=== PATIENT | female | born 1935 | race Caucasian/White ===

== ENCOUNTER 2016-05-29 18:15 | Observation (INO) | payer OTHER ==
--- NOTE | ~2016-05-29 | EKG ---
PATIENT: JENNIFER NAIK UNIT #: [id number] Ventricular Rate: 70 BPM Atrial Rate: 70 BPM P-R Interval: 216 ms QRS Duration: 86 ms Q-T Interval: 418 ms QTC Calculation(Bezet): 451 ms Calculated R Sallis: 9 degrees Calculated T Sallis: 34 degrees Diagnosis Line: Electronic atrial pacemaker Diagnosis Line: When compared with ECG of 29-MAY-2016 16:58, Diagnosis Line: Electronic atrial pacemaker has replaced Atrial Diagnosis Line: fibrillation Diagnosis Line: Vent. rate has decreased BY 67 BPM Diagnosis Line: ST no longer depressed in Inferior leads Diagnosis Line: ST elevation has replaced ST depression in Lateral Diagnosis Line: leads Diagnosis Line: Nonspecific T wave abnormality no longer evident Diagnosis Line: in Inferior leads Diagnosis Line: T wave inversion no longer evident in Lateral Diagnosis Line: leads Diagnosis Line: Confirmed by SHINE SUNG MD ([id number]) on Diagnosis Line: 05/30/2016 3:59:14 PM INTERPRETING MD: MARCE
--- NOTE | ~2016-05-29 | CR72 ---
[facility] A Service of [facility] RADIOLOGY TEXT RESULTS PATIENT: JENNIFER NAIK LOCATION: [facility] [id number] : 36 UNIT #: [id number] AGE: [address]: JORGE MCNALLY SEX: F ORDER DR: [id number] [facility] [address] [place], [place] [address] [id number] MR#: [id number] Acc #: [id number] NAME: JENNIFER NAIK : 1935 SEX: F STUDY DATE/TIME: 05/29/2016 17:41 UNIT: [facility] ROOM: [facility] STUDY DESCRIPTION: CR Chest Single View Portable Attending Physician: Jorge Mcnally M.D. Ordering Physician: Cher Gambino M.D. Primary Care Physician: Jimmie Abdullahi M.D. MEDICAL IMAGING REPORT This report is preliminary unless electronic signature is present EXAM Portable chest HISTORY Chest pain. Shortness of air today. FINDINGS Cardiac size and pulmonary vascularity are normal. No airspace infiltrates or effusions. Left subclavian pacer leads extend into the right atrium and right ventricle. Right shoulder prosthesis. Calcified right hilar nodes. Tortuous descending thoracic aorta. IMPRESSION No acute findings. No active disease. Dictated by... Josh Chen M.D. THIS IS AN ELECTRONICALLY VERIFIED REPORT Josh Chen M.D. at 05/30/2016 11:30 PM MORTEZA/guero TD: 05/30/2016 11:55 JOB #: [id number] MEDICAL IMAGING REPORT Page 1 of 1 COPY
--- NOTE | ~2016-05-29 | HP ---
Unit #: [id number] #: [id number] Patient: JENNIFER NAIK [id number] [facility] [address] [place], [place] [address] [id number] MR#: [id number] NAME: JENNIFER NAIK ROOM: [facility] Age: 80 Sex: F Admission Date: 05/29/2016 : 1935 Attending Physician: Jorge Mcnally M.D. Primary Care Physician: Jimmie Abdullahi M.D. HISTORY AND PHYSICAL HISTORY OF PRESENT ILLNESS This is a 80-year-old white female who sees Cardiology at [facility]. She follows with Dr. Tracy. She has a history of hypertension, hyperlipidemia, permanent pacemaker, paroxysmal atrial fibrillation and reports she had a heart catheterization earlier this month that showed normal coronaries. She came to the emergency room after she felt a fullness in her mid sternal chest wall. The patient was found on her EKG to be in atrial fibrillation with rapid ventricular response. On admission, her blood pressure was 102/55, heart rate 123, respirations 18, temperature 97.8, O2 saturation 95% on room air. Her initial cardiac enzymes are negative. Chest x-ray did not show anything acute. Patient denies any recent illness. She denies that the chest pressure or heaviness radiates up into her neck, bilateral jaw, shoulders, arms or elbow. She has not had any dizziness, presyncopal or syncopal episodes. The patient was started on a Cardizem drip at 5 mg per hour and also on heparin. The patient is not on any chronic anticoagulation. She takes an aspirin. The patient had been on Xarelto, according to records, about three years ago, she is not sure when it was stopped. The patient has been admitted for further evaluation and management. PAST MEDICAL HISTORY 1. Hypertension. 2. Hyperlipidemia. 3. Paroxysmal atrial fibrillation. 4. In 2011, had a cardiac catheterization by Dr. Love here at [facility] that revealed normal coronaries with normal LVEF of 60%. 5. 05/15/2016, cardiac catheterization done at [facility] after she had an abnormal stress test, told it was normal by Dr. Tracy at [facility]. Details unavailable. 6. Permanent pacemaker placed about two years ago. 7. Hypothyroidism. 8. Arthritis. 9. Anxiety. 10. Nonsmoker. PAST SURGICAL HISTORY 1. Right knee replacement. 2. Cholecystectomy. 3. Back surgery. 4. Left knee replacement. Unit #: [id number] #: [id number] Patient: JENNIFER NAIK 5. Revision of left knee. 6. Right shoulder rotator cuff repair and replacement. 7. 2012 colonoscopy showing some diverticulosis. 8. Spinal stenosis and lumbar disk disease. HOME MEDICATIONS 1. Vitamin D 1000 units p.o. daily. 2. Aspirin 81 mg p.o. daily. 3. Sotalol 120 mg p.o. b.i.d. 4. Hydrochlorothiazide 25 mg p.o. daily. 5. Oxycodone 10 mg p.o. t.i.d. 6. Synthroid 150 mcg p.o. daily. 7. Atorvastatin 10 mg p.o. daily. 8. Losartan 50 mg p.o. b.i.d. 9. Protonix 40 mg p.o. daily. 10. Paxil 30 mg p.o. daily. 11. Duragesic patch one patch topically daily. ALLERGIES No known drug allergies. SOCIAL HISTORY The patient lives with her spouse and her son lives with them and helps take care of her and her . She has been a lifelong nonsmoker. No alcohol or illicit drug abuse. She ambulates without a cane or walker. She does some light housework and laundry. FAMILY HISTORY Her mother from complications of diabetes mellitus. Her father had hardening of the arteries. She has three brothers and they all have some kind of heart problems but she is not sure of the details. REVIEW OF SYSTEMS CONSTITUTIONAL: Denies fever or chills. No recent weight gain or weight loss. HEENT: Denies headache or dizziness. No vision or hearing changes. No lymphadenopathy, thyromegaly, or difficulty swallowing. CARDIOVASCULAR: Denies chest pain but complains of chest heaviness and palpitations and heart racing. She has right lower extremity edema which is chronic. PULMONARY: Denies shortness of breath. Denies paroxysmal nocturnal dyspnea or orthopnea. GASTROINTESTINAL: Denies nausea, vomiting, or diarrhea or abdominal pain. NEUROLOGIC: No focal weakness. PHYSICAL EXAMINATION VITAL SIGNS: Current blood pressure 106/68, heart rate 80, respirations 16, temperature 97.5, O2 saturations 99% on room air. GENERAL: Ms. Naik is a 80-year-old white female in no acute respiratory distress. She is awake, alert, answers most questions appropriately. Has a little bit of poor memory recall. NECK: Trachea midline. No thyromegaly, lymphadenopathy. Normal carotid upstrokes. No jugular venous distention. HEART: S1, S2. Regular rate and rhythm on exam. No clicks, murmurs, or rubs. LUNGS: Diminished, otherwise, clear. ABDOMEN: Soft, nontender. EXTREMITIES: Pedal pulses are palpable. She has 1+ pedal edema in the Unit #: [id number] #: [id number] Patient: JENNIFER NAIK right lower extremity. DIAGNOSTIC STUDIES LABORATORY: Glucose 94, BUN 39, creatinine 1.1, EGFR 47.7, sodium 145, potassium 4.0, chloride 107, CO2 is 33, calcium 8.8, total protein 7.0, albumin 3.9, total bilirubin 0.6, AST 88, ALT 57, alkaline phosphatase 78. BNP 380. INR 1.0. WBC 4.8, hemoglobin 13.2, hematocrit 40.2, platelets 106. Initial cardiac enzymes CKMB less than 1.0, troponin less than 0.05; CKMB less than 1.0, troponin less than 0.05. IMAGING: Chest x-ray preliminary report nothing acute. CARDIOVASCULAR: EKG on admission shows atrial fibrillation with ventricular rate 137 beats per minute. Some ST-T-wave abnormality in the anterior lateral lead, appears to be 0.[address] depression in the anterior lateral leads. Poor R-wave progression. IMPRESSION 1. Atrial fibrillation with rapid ventricular response. 2. Periods of hypotension. 3. History of hypertension. 4. History of paroxysmal atrial fibrillation. 5. Hyperlipidemia. 6. Normal coronaries on cardiac catheterization 05/18/[address] Tracy at [facility], according to the patient. Details unavailable. 7. Permanent pacemaker two years ago. 8. Hypothyroidism. 9. Anxiety. 10. Nonsmoker. 11. Arthritis. PLAN 1. Patient has been admitted for management of her atrial fibrillation. She has converted back to normal sinus rhythm. She is to be atrial paced. Patient is already on sotalol 120 mg p.o. b.i.d. Will continue that and start on Cardizem 30 mg p.o. q.6 h. with parameters. Will stop the Cardizem drip. The patient had a period where her blood pressure went down to 80 systolic after she got an initial bolus of Cardizem which has stabilized. 2. Regarding anticoagulation, patient is on a heparin drip. That will be stopped and she will be started on Lovenox 1 mg/kg subcu daily. Then, will check the cost of Eliquis 5 mg p.o. b.i.d. The patient does not want to go back on Xarelto. She believes that had some side effects that caused her a lot of GI issues. 3. On exam, there are no signs or symptoms of acute congestive heart failure. Her cardiac enzymes so far are negative. Her heaviness/pressure in her chest most likely was from the atrial fibrillation with RVR. She had normal coronaries according to the patient on a cardiac catheterization. Will obtain records from [facility] including that latest cardiac catheterization, 2D echo, latest History and Physical and Discharge Summary and cardiology note. 4. Will hold off on her losartan at this point to avoid any hypotension. Continue on the aspirin. Also stop the hydrochlorothiazide for now. 5. 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 6. Obtain a TSH for further evaluation. 7. Further recommendations pending per Dr. Miller. Unit #: [id number] #: [id number] Patient: JENNIFER NAIK Dictated by Shannon Souza A.P.R.N. for Flavia Boswell/comfort TD: 05/30/2016 11:35 JOB #: [id number] HISTORY AND PHYSICAL Page 1 of 1 X Shannon Souza APRN HISTORY AND PHYSICAL
--- NOTE | ~2016-05-29 | EKG ---
PATIENT: JENNIFER NAIK UNIT #: [id number] Ventricular Rate: 137 BPM Atrial Rate: 115 BPM QRS Duration: 88 ms Q-T Interval: 342 ms QTC Calculation(Bezet): 516 ms Calculated R Thaxton: -16 degrees Calculated T Thaxton: 95 degrees Diagnosis Line: Atrial fibrillation with rapid ventricular Diagnosis Line: response Diagnosis Line: ST depression, consider subendocardial injury Diagnosis Line: Nonspecific T wave abnormality Diagnosis Line: Abnormal ECG Diagnosis Line: When compared with ECG of 24-MAY-2015 11:59, Diagnosis Line: Significant changes have occurred Diagnosis Line: Confirmed by ROSALBA CASANOVA MD ([id number]) on 05/30/2016 Diagnosis Line: 7:21:05 AM INTERPRETING MD: JOCELYNE CARTWRIGHT
--- NOTE | ~2016-05-29 | EKG ---
PATIENT: JENNIFER NAIK UNIT #: [id number] Ventricular Rate: 71 BPM Atrial Rate: 71 BPM P-R Interval: 216 ms QRS Duration: 90 ms Q-T Interval: 432 ms QTC Calculation(Bezet): 469 ms Calculated R Monroe: 10 degrees Calculated T Monroe: 10 degrees Diagnosis Line: Atrial-paced rhythm Diagnosis Line: Abnormal ECG Diagnosis Line: When compared with ECG of 30-MAY-2016 10:11, Diagnosis Line: No significant change was found Diagnosis Line: Confirmed by ROSALBA CASANOVA MD ([id number]) on 06/01/2016 Diagnosis Line: 5:33:34 AM INTERPRETING MD: JOCELYNE CARTWRIGHT
--- NOTE | ~2016-05-29 | DS ---
Unit #: [id number] #: [id number] Patient: JENNIFER NAIK [id number] [address] [place], [place] [address] [id number] MR#: [id number] NAME: JENNIFER NAIK ROOM: 570 Age: 80 Sex: F Admission Date: 05/29/2016 : 1935 Discharge Date: 05/31/2016 Attending Physician: Jorge Mcnally M.D. Primary Care Physician: Jimmie Abdullahi M.D. DISCHARGE SUMMARY DISCHARGE DIAGNOSES 1. Paroxysmal atrial fibrillation with rapid ventricular response. 2. History of paroxysmal atrial fibrillation in the past. Had not been on chronic anticoagulation on admission. 3. Hypotension on admission, which resolved. 4. History of hypertension. 5. Hyperlipidemia. 6. Recent catheterization at [facility] by Dr. Tracy on 05/18/2016, which revealed minimal coronary artery disease with no significant lesions, left ventricular hypercontractility, 80% left ventricular ejection fraction. Calcified mitral valve anulus. 7. Two-dimensional echocardiogram done on 04/14/[address] Tracy, which revealed normal left ventricular systolic function with left ventricular ejection fraction of 53%. Left ventricular hypertrophy, mild calcified mitral valve anulus and [id number] mitral regurgitation and moderately severe left atrial enlargement. 8. Sick sinus syndrome. Has permanent pacemaker. 9. Hypothyroidism. 10. Gastroesophageal reflux disease. 11. Arthritis. 12. Anxiety. 13. Nonsmoker. DISCHARGE MEDICATIONS 1. Fentanyl patch as directed. 2. Paxil 30 mg p.o. daily. 3. Diltiazem 60 mg p.o. b.i.d. (new prescription and instructed if has increased palpitations will take an additional 60 mg that day). 4. Sotalol 120 mg p.o. b.i.d. 5. Hydrochlorothiazide stopped. 6. Atorvastatin 10 mg p.o. daily. 7. Stop losartan. 8. Aspirin 81 mg p.o. daily. 9. Oxycodone 10 mg p.o. t.i.d. p.r.n. 10. Protonix 40 mg p.o. daily. 11. Synthroid 150 mcg p.o. daily. 12. Vitamin D 1,000 units p.o. daily. 13. Eliquis 5 mg p.o. b.i.d. HOSPITAL COURSE This is a 80-year-old white female who has a history of paroxysmal atrial fibrillation and a permanent pacemaker, hypertension, hyperlipidemia and recent essentially normal heart catheterization. She follows Dr. Tracy with [facility]. She came to the emergency room after she had a tightness and Unit #: [id number] #: [id number] Patient: JENNIFER NAIK fullness in her chest and feeling her heart racing and palpating. On admission the patient's EKG showed atrial fibrillation with rapid ventricular response. Her blood pressure was a little low at 102/55 mmHg. Her cardiac enzymes remained negative. Her chest x-ray did not show anything acute. She denied any recent illness. Denies heaviness in her chest, radiates up into the neck, bilateral jaws, shoulders, arms or elbows. She did not report any dizziness, pre-syncope or syncope. The patient was started on a Cardizem drip and a heparin drip for anticoagulation. In reviewing the patient's medications, she had not been on any anticoagulation for some time. The patient remembers being on Xarelto, and it was stopped because of having a lot of GI symptoms. The patient does report she still takes an aspirin. The last time she has seen Dr. Tracy, earlier this month, she was in normal sinus rhythm. After the Cardizem drip, the patient's blood pressure did drop once to 78/60 but she got a normal saline 250 bolus and rebounded. Her blood pressure is now low 100s systolically. She did convert back to normal sinus rhythm. She does have an atrial paced rhythm, underlying sinus rhythm. The patient has been on sotalol 120 mg p.o. twice daily. Because her blood pressure was a little low, she was started low dose of Cardizem, and then the Cardizem drip was stopped. Since admission, has maintained sinus rhythm on oral Cardizem, in addition to oral sotalol. She will be discharged home on Cardizem 60 mg p.o. twice daily and will be instructed that if she has any burst of irregular heartbeat or heart racing to take an extra 60 mg of Cardizem. She will also continue on the sotalol to maintain normal sinus rhythm. It was discussed with the patient the need to be on anticoagulation. Discussed the risks and benefits. The patient has a CHADS2 score of 3. The patient verbalized understanding of the need to be on it and agreed that she preferred not to be put back on Xarelto due to the side effects she had on it last time. Will write a script for Eliquis 5 mg p.o. twice daily if that cost is affordable. The patient will be discharged home on Eliquis 5 mg p.o. twice daily for chronic anticoagulation. The cost of Eliquis was $47 a month, and the patient said she could afford that. The patient's TSH was done, and it was normal. There are no signs or symptoms of unstable angina or acute congestive heart failure. Cardiac enzymes remain negative. On day of discharge the patient is in stable condition. No complaints of chest pain, palpitations or dizziness. Her telemetry remains in normal sinus rhythm. Vital signs are stable. PHYSICAL EXAMINATION (at time of discharge) VITAL SIGNS: Blood pressure is 114/65, heart rate is 70, respirations 16, temperature 98.1, O2 sats 94% on room air. HEART: S1, S2, regular rate and rhythm. No clicks. A soft systolic murmur at left sternal border. LUNGS: Bilaterally clear throughout. ABDOMEN: Soft, nontender. EXTREMITIES: Pedal pulses are palpable. No pedal edema. DIAGNOSTIC STUDIES LATEST LABORATORY DIAGNOSTIC DATA: Glucose is 95, BUN 23, creatinine 1, eGFR 53.6, sodium 141, potassium 4, chloride 106, CO2 30, calcium 9.1, total protein 6.3, albumin 3.3, bili total 0.7, AST 37, ALT 44, alkaline phosphatase 64. TSH is 1.57. WBC 4.8, hemoglobin 13.2, hematocrit 41.2, platelets 119. CARDIOVASCULAR: Telemetry today shows atrial-paced rhythm with underlying normal sinus rhythm with ventricular rate in the 70s. Unit #: [id number] #: [id number] Patient: JENNIFER NAIK PLAN/INSTRUCTIONS 1. The patient will be discharged home today. Instructed to follow up with Dr. Tracy in about 4-6 weeks. The patient verbalizes that she has her doctor's number and will call him to make the appointment. 2. Instructed the patient on the changes in her medications, including stopping the losartan and Hydrochlorothiazide to avoid any hypotension, although will continue on the sotalol 120 mg p.o. twice daily, along with adding Cardizem 60 mg p.o. twice daily to maintain normal sinus rhythm. 3. The patient has been given a script for Eliquis. She also got a coupon for a free 30-day trial offer, and she will get it filled at [facility] near her home. 4. Instructed the patient to follow up with her primary care doctor in 1 or 2 weeks. 5. The patient is to report any signs or symptoms of any unusual bleeding, and that has been reinforced. 6. On date of discharge the patient is in stable condition. No complaints of shortness of breath, palpitations or dizziness. Vital signs are stable. Dictated by... Shannon Souza A.P.R.N. for Flavia Boswell/lucius TD: 05/31/2016 14:23 JOB #: [id number] CC: Haile Tracy M.D. DISCHARGE SUMMARY Page 1 of 1 X Shannon Souza APRN DISCHARGE SUMMARY
[2016-05-29 17:26] LABS: POC - CKMB <1.0 ng/mL (0.0-7.9); POC - TROPONIN <0.05 ng/mL (<=0.05)
[2016-05-29 17:38] LABS: BASOPHIL% 0.5 % (0-2.5); EOSINOPHIL# 0.1 X10e3 (0-0.7); HEMATOCRIT 42.5 % (35.0-45.0); HEMOGLOBIN 13.7 gm/dL (12.0-16.0); LYMPHOCYTE# 1.5 X10e3 (1.0-3.5); LYMPHOCYTE% 29.4 % (17.0-45.0); MEAN CELL VOLUME 99.9 FL (83-96); MEAN CORPUSCULAR HEMOGLOBIN 32.3 PG (28-34); MEAN CORPUSCULAR HGB CONC 32.3 g/dL (30-36); MEAN PLATELET VOLUME 9.5 FL (6.5-11.5); MONOCYTE# 0.5 X10e3 (0-1.0); MONOCYTE% 10.3 % (3.0-12.0); NEUTROPHIL% 57.8 % (40-75); PLATELET COUNT 117 X10e3 (140-420); RED BLOOD COUNT 4.26 X10e (3.90-5.30); RED CELL DISTRIBUTION WIDTH 12.8 % (11.0-15.5); WHITE BLOOD COUNT 5.1 X10e3 (4.0-10.5)
[2016-05-29 17:43] LABS: DIFF IND NO
[2016-05-29 17:54] LABS: PARTIAL THROMBOPLASTIN TIME 25.6 SECONDS (23.5-31.3)
[2016-05-29 18:02] LABS: ALBUMIN SERUM 3.9 g/dL (3.5-5.0); BILIRUBIN, DIRECT 0.1 mg/dL (0.0-0.2); BILIRUBIN,INDIRECT 0.5 mg/dL (0.0-0.9); BILIRUBIN,TOTAL 0.6 mg/dL (0.2-2.0); BUN/CREATININE RATIO 27.69; CALCIUM SERUM 9.1 mg/dL (8.4-10.2); CREATININE SERUM 1.3 mg/dL (0.6-1.4)
[~2016-05-29 18:15] MED LIST: ACETAMINOPHEN PO; ACETAMINOPHEN500 M3 PO; ALTACE PO; ALTACE10 M2 PO; AMLODIPINE BESYL5 MG PO; ASPIRIN EC81 M1 PO; ASPIRIN81 M1 PO; ATIVAN0.5 M1; BACTRIM 400-801 TA1; BACTRIM DS TABL1 TA1; CALCIUM CITRATE1 T12 PO; CARDIZEM CD PO; CENTRUM PO; CENTRUM SILVER PO; COREG6.25 MG PO; COUMADIN PO; COUMADIN2.5 MG PO; COUMADIN5 MG PO; COZAAR; DURAGESIC1 EAC1; FLEXERIL PO; GLUCOSAMINE CH1 EACH PO; HYDROCODONE-APA1 T33 PO; KADIAN10 MG PO; KLONOPIN; LAMICTAL100 MG PO; LEVOTHYROXINE25 MCG PO; LIPITOR; LOVENOX SUBQ; MELOXICAM15 MG; MOBIC PO; MOBIC15 MG PO; MULTI-DAY1 TAB PO; NITROGLYGERIN0.4 MG SL; OXYCODON-ACETA1 EAC1 PO; OXYCODONE HCL10 MG PO; PAROXETINE HCL20 MG PO; PAXIL PO; PERCOCET5/325 PO; PERCOCET7.5; PERCOCET7.5 PO; PHENERGAN25 MG PO; PROPRANOLOL HCL40 MG PO; PROTONIX20 MG; REMERON; SIMVASTATIN40 MG PO; SYNTHROID; TYLENOL PM EX-S1 TA4 PO; VIT C PO; VIT E PO; VITAMIN C PO; VITAMIN C500 M1 PO; XARELTO10 MG; ZETIA PO; ZOFRAN
[2016-05-29] MEDS ORDERED: SYNTHROID PO (18:47)
[2016-05-29] MEDS ORDERED: ATORVASTATIN CA10 MG PO (18:48)
[2016-05-29] MEDS ORDERED: PROTONIX PO (18:48)
[2016-05-29] MEDS ORDERED: LOSARTAN POTASS50 MG PO (18:48)
[2016-05-29] MEDS ORDERED: VITAMIN D1000 UNIT PO (18:49)
[2016-05-29] MEDS ORDERED: PAXIL30 MG PO (18:49)
[2016-05-29] MEDS ORDERED: BAYER CHEWABLE81 MG PO (18:49)
[2016-05-29] MEDS ORDERED: SOTALOL120 MG PO (18:51)
[2016-05-29] MEDS ORDERED: HYDROCHLOROTHIA25 MG PO (18:55)
[2016-05-29] MEDS ORDERED: OXYCODONE HCL10 MG PO (18:59)
[2016-05-29] MEDS ORDERED: DURAGESIC1 EAC1 TD (19:01)
[2016-05-29 19:53] LABS: POC - CKMB <1.0 ng/mL (0.0-7.9); POC - TROPONIN <0.05 ng/mL (<=0.05)
[2016-05-30 05:37] LABS: BASOPHIL% 0.4 % (0-2.5); EOSINOPHIL# 0.1 X10e3 (0-0.7); EOSINOPHIL% 2.2 % (0.0-7.0); HEMATOCRIT 40.2 % (35.0-45.0); HEMOGLOBIN 13.2 gm/dL (12.0-16.0); LYMPHOCYTE# 1.9 X10e3 (1.0-3.5); MEAN CELL VOLUME 98.9 FL (83-96); MEAN CORPUSCULAR HEMOGLOBIN 32.5 PG (28-34); MEAN CORPUSCULAR HGB CONC 32.8 g/dL (30-36); MEAN PLATELET VOLUME 9.4 FL (6.5-11.5); MONOCYTE# 0.6 X10e3 (0-1.0); MONOCYTE% 12.3 % (3.0-12.0); NEUTROPHIL# 2.2 X10e3 (1.5-7.1); NEUTROPHIL% 46.1 % (40-75); PLATELET COUNT 106 X10e3 (140-420); RED BLOOD COUNT 4.06 X10e (3.90-5.30); RED CELL DISTRIBUTION WIDTH 13.3 % (11.0-15.5); WHITE BLOOD COUNT 4.8 X10e3 (4.0-10.5)
[2016-05-30 05:50] LABS: DIFF IND NO
[2016-05-30 06:11] LABS: BUN/CREATININE RATIO 26.36; CALCIUM SERUM 8.8 mg/dL (8.4-10.2); CREATININE SERUM 1.1 mg/dL (0.6-1.4); GLOM FILT RATE Estimated 47.7 mL/min (>60)
[2016-05-31 06:14] LABS: HEMATOCRIT 41.2 % (35.0-45.0); HEMOGLOBIN 13.2 gm/dL (12.0-16.0); MEAN CELL VOLUME 98.9 FL (83-96); MEAN CORPUSCULAR HEMOGLOBIN 31.7 PG (28-34); MEAN CORPUSCULAR HGB CONC 32.1 g/dL (30-36); MEAN PLATELET VOLUME 9.4 FL (6.5-11.5); RED BLOOD COUNT 4.16 X10e (3.90-5.30); RED CELL DISTRIBUTION WIDTH 13.2 % (11.0-15.5); WHITE BLOOD COUNT 4.8 X10e3 (4.0-10.5)
[2016-05-31 07:09] LABS: ALBUMIN SERUM 3.3 g/dL (3.5-5.0); BILIRUBIN, DIRECT 0.1 mg/dL (0.0-0.2); BILIRUBIN,INDIRECT 0.6 mg/dL (0.0-0.9); BILIRUBIN,TOTAL 0.7 mg/dL (0.2-2.0); CALCIUM SERUM 9.1 mg/dL (8.4-10.2); GLOM FILT RATE Estimated 53.6 mL/min (>60); PROTEIN TOTAL SERUM 6.3 g/dL (6.0-8.3)
[2016-05-31] MEDS ORDERED: CARDIZEM30 M1 PO (10:05)
== END 2016-05-31 12:41 | disposition home or self-care (01) ==
LOC: CED 18:15 → CEDOF 19:15 → C5C 05-30 08:00
PROVIDERS: Emergency Medicine; Internal Medicine Clinical Cardiac Electrophysiology
DX: I48.0 Paroxysmal atrial fibrillation (principal); I95.9 Hypotension, unspecified; E78.5 Hyperlipidemia, unspecified; Z95.0 Presence of cardiac pacemaker; E03.9 Hypothyroidism, unspecified; F41.9 Anxiety disorder, unspecified; I34.0 Nonrheumatic mitral (valve) insufficiency; M19.90 Unspecified osteoarthritis, unspecified site; Z86.79 Personal history of other diseases of the circulatory system; Z96.653 Presence of artificial knee joint, bilateral
CPT/HCPCS: 71010; 80048; 80076; 82553; 83880; 84443; 84484; 85025; 85027; 85610; 85730; 93005; 96372; 96374; 99291; G0378; J1644; J1650